=== PATIENT | female | born 1940 | race Caucasian/White ===

== ENCOUNTER → 2016-05-09 | Day surgery (SDC) | payer OTHER ==
[~2016-05-09] MED LIST: ACETAMINOPHEN 1000 MG/100 ML VIAL IV ONE; BUPIVACAINE/EPINEPHRINE 0.25% 50 ML VIAL ONE; LACTATED RINGER'S 1000 ML INJ 1,000 ML ONE; LIDOCAINE 1%/EPINEPHrine 1:100,000 SOLN 30 ML VIAL ONE; MEPERIDINE HCL 25 MG/ML VIAL ONE; MIDAZOLAM HCL 2 MG/2 ML VIAL ONE; ONDANSETRON HCL 4 MG/2 ML VIAL IV PUSH ONE; PROPOFOL 200 MG/20 ML AMP IV ONE; ceFAZolin INJ 1,000 MG VIAL ONE
--- NOTE | 2016-05-09 12:11 | TN ---
cc: FRANCISCO IVORY M.D. DATE OF SURGERY: 05/09/2016 PREOPERATIVE DIAGNOSIS Bilateral level IV capsule contraction. POSTOPERATIVE DIAGNOSIS Bilateral level IV capsule contraction. PROCEDURE Removal of bilateral implants and full capsulectomy and lateral capsulorrhaphies. SURGEON Francisco Ivory MD ANESTHESIA LMA general. Local 60 ccs of 1% lidocaine with epinephrine. ESTIMATED BLOOD LOSS Minimal. DRAINS Two 7 mm LANA drains, one per side. COMPLICATIONS None. PROCEDURE She was properly consented, marked, properly anesthetized. The skin was sterilized with Betadine solution and sterile draping applied. Local anesthetic was infiltrated. Through a previous inframammary incision I proceeded and performed the removal of the capsule as well as the implant. Both implants were gels, high profile and they were intact. Full capsulectomy was done. This appears to be in the sub-glandular level. No evidence of masses were properly noted and the lateral capsulorrhaphies were done in order to rearrange the breast tissue. Assured meticulous hemostasis was done. At this point through a separate stab wound and 7 mm LANA drain was brought out and secured in place. The wound was closed in multiple 2-0 Monocryl suture layers and then the breast parenchyma, dermis and subcu. The contralateral side was approached exactly in the same manner as previously described. For dressings I utilized Mastisol and Steri-Strips and a bra. She was awakened, extubated in the operating room and transferred back to the postanesthesia care unit in stable condition. No complications were appreciated. The patient tolerated the procedure fairly well. MD ZAID Leo/NIKKI /11:51 AM /11:55 AM JOHNSON
== END | disposition home or self-care (01) ==
LOC: ESDC 08:45
PROVIDERS: ATTEND Plastic Surgery
DX: Z41.1 Encounter for cosmetic surgery (principal)
CPT/HCPCS: 00400; 19328; 88305; 88311; J0131; J0690; J2175; J2250; J2405; J3010; J7120

== ENCOUNTER → 2016-08-15 | Day surgery (SDC) | payer OTHER ==
[~2016-08-15] MED LIST changes: -BUPIVACAINE/EPINEPHRINE 0.25% 50 ML VIAL ONE; +BUPIVACAINE/EPINEPHRINE 0.5% PF 30 ML VIAL ONE; +KETOROLAC TROMETHAMINE 30 MG/ML (IVP) VIAL IV PUSH ONE; -LIDOCAINE 1%/EPINEPHrine 1:100,000 SOLN 30 ML VIAL ONE; +LIDOCAINE 1.5%/EPINEPHrine 1:200,000 PF SOLN 30 ML AMP ONE; -MEPERIDINE HCL 25 MG/ML VIAL ONE; +PROPOFOL 100 MG/10 ML INJ IV ONE; -PROPOFOL 200 MG/20 ML AMP IV ONE; +SODIUM CHLORIDE 0.9% INJ 10 ML ONE
--- NOTE | 2016-08-15 10:07 | TN ---
cc: FRANCISCO IVORY M.D. 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 PROCEDURE Fat injections to the upper pole bilateral breasts, a total of 240 cc, 120 cc per breast. DONOR SITE Torso. SURGEON Francisco Ivory MD ANESTHESIA LMA general. TOTAL TUMESCENCE 1000 cc mixed with saline mixed with 30 cc of 1% lidocaine with 1 cc epinephrine 1:1000. PROCEDURE She was properly placed under good LMA general anesthesia. Utilizing to the tulip draping system, Betadine solution was utilized to sterilize the skin. Punctures wounds were done utilizing an 11-blade. The tumescent fluid was delivered utilizing the pump system, allotted 10 minutes for vasoconstriction. Harvesting of fat was done into a sterile container. A total of 750 mL of fat was properly removed from the upper and lower abdomen, flanks and back and each and every one of those puncture wounds were closed utilizing 5-0 chromic suture and Steri-Strips applied. The fat was properly decanted, filtered and transferred to the 60 cc syringe where the delivery of the fat was done systematically in small aliquots in order to correct the deformity as the patient was completely sat up. Again we were able to achieve 120 cc of fat per breast without any difficulty. After that again the punctures were closed utilizing absorbable material. A snug brassiere was applied. She was awakened and extubated in the operating room. No complications appreciated and abdominal binder was applied for the suction area. The patient tolerated the procedure well. MD ZAID Leo/KELSEA /8:39 AM /10:01 AM
== END | disposition home or self-care (01) ==
LOC: ESDC 06:20
PROVIDERS: ATTEND Plastic Surgery
DX: Z41.1 Encounter for cosmetic surgery (principal)
CPT/HCPCS: 00400; 11954; J0131; J0690; J1885; J2250; J2405; J3010; J7120